=== PATIENT | male | born 1985 | race Caucasian/White ===

== ENCOUNTER 2018-04-01 15:22 | Inpatient (IN) | payer SELFPAY ==
[~2018-04-01] VITALS: Ht 162.6 cm; Wt 64.5 kg
[2018-04-01 15:23] VITALS: BP 138/86
[2018-04-01 15:53] LABS: BASO # 0.1 10*3/uL (0.0-0.1); BASO % 0.6 % (0.0-1.0); EOS # 0.5 10*3/uL (0.0-0.4); EOS % 5.3 % (1.0-4.0); HEMATOCRIT 42.6 % (42.0-52.0); HEMOGLOBIN 14.5 g/dl (14.0-18.0); LYMPH # 1.5 10*3/uL (1.3-4.4); LYMPH % 16.6 % (27.0-41.0); MEAN CELL VOLUME 86.1 fl (80.0-94.0); MEAN CORPUSCULAR HGB 29.3 pg (27.0-31.0); MEAN PLATELET VOLUME 10.6 fl (9.6-12.3); MONO # 0.9 10*3/uL (0.1-1.0); MONO % 10.5 % (3.0-9.0); NEUT % 66.8 % (47.0-73.0); PLATELET COUNT AUTOMATED 167 10*3/uL (130-400); RED BLOOD COUNT 4.95 10*6/uL (4.50-5.90); RED CELL DISTRI WIDTH 12.8 % (0-14.5); WHITE BLOOD COUNT 8.9 10*3/uL (4.8-10.8)
[2018-04-01 16:03] LABS: BILIRUBIN NEGATIVE (NEGATIVE); BLOOD NEGATIVE (NEGATIVE); CLARITY CLEAR (CLEAR); COLOR YELLOW (YELLOW); GLUCOSE NEGATIVE (NEGATIVE); KETONE NEGATIVE (NEGATIVE); LEUKO ESTERASE NEGATIVE (NEGATIVE); NITRITE NEGATIVE (NEGATIVE); SPECIFIC GRAVITY 1.025 (1.005-1.030); UROBILINOGEN 0.2 E.U./dl (0.2-1.0)
[2018-04-01 16:12] LABS: ALBUMIN 3.5 gm/dl (3.1-4.5); ALKALINE PHOSPHATASE 90 U/L (45-117); BUN 16 mg/dl (7-24); CHLORIDE 100 mmol/L (98-107); CREATININE 0.79 mg/dL (0.70-1.30); POTASSIUM 3.6 mmol/L (3.5-5.1); SGOT/AST 15 IU/L (3-35); SGPT/ALT 22 U/L (12-78); SODIUM 137 mmol/L (136-145); TOTAL PROTEIN 7.1 gm/dL (6.4-8.2)
[2018-04-01 16:12] LABS: URINE AMPHETAMINES < 1000 (1000ng/ml); URINE BARBITURATES < 200 (200ng/ml); URINE BENZODIAZEPINES < 200 (200ng/ml); URINE CANNABINOIDS (THC) < 50 (50ng/ml); URINE COCAINE < 300 (300ng/ml); URINE METHADONE < 300 (300ng/ml); URINE OPIATES > 300 (300ng/ml)
[2018-04-01 16:17] LABS: ACETAMINOPHEN (TYLENOL) < 2.0 ug/ml (10-30); ETHYL ALCOHOL < 3.0 mg/dl (<3); TROPONIN I < 0.015 ng/ml (<0.045)
[2018-04-01 16:17] LABS: URINE PHENCYCLIDINE > 25 (25ng/ml)
[2018-04-01 16:20] LABS: RBC 0-2 rbc/hpf (0-2); WBC 0-2 wbc/hpf (0-5)
[2018-04-01 20:00] VITALS: BP 121/83
[2018-04-02] VITALS: BP 118/74
[2018-04-02 08:00] VITALS: BP 112/78
[2018-04-02 12:00] VITALS: BP 131/94
[2018-04-02 16:00] VITALS: BP 101/67
[2018-04-02 20:00] VITALS: BP 118/76
[2018-04-03] VITALS: BP 108/71
[2018-04-03 08:00] VITALS: BP 98/50
[2018-04-03 12:00] VITALS: BP 134/75
[2018-04-03 16:00] VITALS: BP 100/50
[2018-04-03 20:00] VITALS: BP 112/68
[2018-04-04 00:33] VITALS: BP 100/62
[2018-04-04 08:00] VITALS: BP 103/56
== END 2018-04-04 10:30 | disposition home or self-care (01) | DRG 897 ==
LOC: ED 15:22 → EDHOLD 16:50 → 5E 16:50
PROVIDERS: Nurse Practitioner Family
DX: F11.23 Opioid dependence with withdrawal (principal); F17.210 Nicotine dependence, cigarettes, uncomplicated; R51 Headache; M54.2 Cervicalgia; R73.9 Hyperglycemia, unspecified; G89.4 Chronic pain syndrome; Z88.0 Allergy status to penicillin; Z71.6 Tobacco abuse counseling